=== PATIENT | female | born 1965 | race Caucasian/White ===

== ENCOUNTER → 2018-11-03 | Day surgery (SDC) | payer BC ==
[~2018-11-03] MED LIST: BACITRACIN 50,000 UNIT VIAL ONE; CALTRATE 600 W1 EACH PO; CEFAZOLIN SOD 1 GM/NS 50ML 50 ML IV ONE; CRESTOR10 MG PO; FENTANYL CITRATE/PF 100MCG/2 ML INJ ONE; LIDOCAINE 2%/ EPINEPHRINE 20ML MDV ONE; LIDOCAINE HCL 2% LOCAL INJ 5 ML SDV VIAL INJ ONE; LISINOPRIL-HCT1 EAC2 PO; MIDAZOLAM HCL 2 MG/2 ML VIAL ONE; MUPIROCIN 2% OINT 22 GM TUBE ONE; PROPOFOL IV EMULSION 10 MG/ML 20 ML VIAL ONE
[2018-11-03 13:15] VITALS: BP 120/69
--- NOTE | 2018-11-03 15:26 | Operative Report ---
DATE OF PROCEDURE: 11/03/2018 SURGEON: Beka Hagen MD PREOPERATIVE DIAGNOSIS: Left cheek abscess. POSTOPERATIVE DIAGNOSIS: Left cheek abscess. PROCEDURES: Incision and drainage of left cheek abscess. ANESTHESIA: MAC/local. HISTORY: The patient is a 53-year-old female, who at the beginning of October, developed a left cheek abscess. At that time, she was also found to have a tooth which was ischemic and then infected. She was treated by Oral Surgery, who gave her a course of antibiotics and then eventually removed the tube. However, she has been plagued by a persistent left cheek abscess, which has not resolved despite multiple bouts of antibiotics. Risks, benefits, and alternatives were discussed with the patient. She is prepared to undergo the procedure as outlined. PROCEDURE IN DETAIL: The patient was marked preoperatively in the holding area. She was brought to the operating theater and after the induction of adequate IV sedation she is prepped and draped in a supine position and a time-out was performed. The proposed incision over the fluctuant area of the abscess was marked out and then infiltrated with 1% Xylocaine with epinephrine 2mL to 3 mL were used. At this point, the incision was made through the skin and subcutaneous tissue. Copious amounts of purulent exudate are encountered and this was cultured both aerobically and anaerobically. A hemostat was used to break up all the loculations of the abscess cavity and then the abscess cavity is copiously irrigated with an antibiotic containing solution. Approximately 200 mL to 300 mL was used until the effluent is totally clear. At this point, quarter-inch packing was placed into the opening of the abscess cavity and the cavity was packed as well. A sterile dressing was applied over the packing. The patient tolerated the procedure well. The estimated blood loss of procedure was negligible. She was returned to recovery room in satisfactory condition and discharged with a postoperative instruction sheet as well as a followup appointment. Beka Hagen MD ER/MODL /[id number]
== END | disposition home or self-care (01) ==
LOC: OR 08:39
PROVIDERS: ATTEND Plastic Surgery
DX: L02.01 Cutaneous abscess of face (principal); I10 Essential (primary) hypertension; F17.210 Nicotine dependence, cigarettes, uncomplicated
CPT/HCPCS: 87071; 87075; 87205; 93005; J0690; J2001; J2250; J3010